=== PATIENT | female | born 1955 | race Caucasian/White ===

== ENCOUNTER → 2017-08-02 | Outpatient (CLI) | payer OTHER ==
[2016-08-02 13:33] VITALS: BP 121/78; PULSE 88
[~2017-08-02] MED LIST: BIOT1CAP8 PO; CALC500C70 PO; EXM/25 PO; OMEG10007 PO
[2017-08-02 13:49] VITALS: BP 113/70; PULSE 74; TEMP 36.7; O2SAT 97
--- NOTE | 2017-08-02 14:34 | Radiation Oncology Follow-Up ---
Radiation Oncology Follow-Up Date of Visit Aug 02, 2017. Reason For Visit Annual follow-up Radiation Completion Date 12/19/12 Diagnosis (1) Carcinoma of right breast Status: Resolved Onset Date: ~ 1998 Stage: l Permanent Comment: History of tubular carcinoma the right breast stage [id number] Status post lumpectomy and sentinel lymph node biopsy Status post completion of radiation therapy to the right breast with boost received 6120 cGy completed 09/14/1999 5 years of tamoxifen Last Edited By: Julia Garcia on Jul 28, 2015 16:08 (2) Carcinoma of left breast Status: Resolved Onset Date: ~ 2012 Stage: ll (A) Permanent Comment: Abnormal left breast mammogram Status post breast lumpectomy and sentinel lymph node biopsy 08/26/2012 Lobular carcinoma stage pTII [id number] Estrogen receptor positive progesterone receptor positive HER-2/peyman negative Oncotype DX score of 19 Status post completion of radiation therapy utilizing hypo-fractionation completed 12/19/2012 received 5006 cGy Last Edited By: Julia Garcia on Jul 28, 2015 16:10 Interim History She's been doing well over this past year. She denies any changes to her breast. She's noted no masses or tenderness and no change in the axilla. She is up-to-date on mammography. She had a mammogram 08/01/2016. This was benign with no evidence of malignancy. She is scheduled for a mammogram on 2016. She continues regular follow-up with Dr. Davis in medical oncology. She is on Aromasin. She denies side effects. Allergies Coded Allergies: No Known Allergies (Verified , 12/25/02) Home Medications Scheduled Biotin (Biotin), 1 CAP PO DAILY Calcium/Vitamin D (Os-John 500 Plus D), 1 TAB PO DAILY Exemestane (Aromasin), 25 MG PO DAILY Fish Oil ([place]-3), 1 CAP PO DAILY Review of Systems Gastrointestinal: Symptoms: WNL Oral: Symptoms: No Problems Respiratory: Symptoms: WNL, Dry Cough Respiratory Comments: Dry cough off and on Other Respiratory: Gets cough to clear throat at times - dry cough most of time Urinary: Symptoms: WNL, Frequency Comments: Freqency "just lately " Skin: Symptoms: No Problems Breast: Right Upper Arm Measurement: 25.7 Right Mid Arm Measurement: 22.1 Right Wrist Measurement: 15.6 Left Upper Arm Measurement: 26.5 Left Mid Arm Measurement: 23.2 Left Wrist Measurement: 15.7 Arm Dominence: Right Physical Exam Vital Signs Date Time Temp Pulse Resp B/P (MAP) Pulse Ox O2 Delivery O2 Flow Rate FiO2 08/02/17 13:49 36.7 74 16 113/70 97 Pain: Pain Location: None Patient Pain Scale: 0 - 10 Initial Pain Intensity: 0.0 General Appearance: no apparent distress Eyes: normal inspection, EOMI ENT: normal ENT inspection, hearing grossly normal Neck: no adenopathy, thyroid normal Respiratory/Chest: lungs clear, no respiratory distress, no accessory muscle use Breast: Breast examination reveals well-healed incisions of the left breast. The incision is in the upper outer quadrant. This is near to the axillary node incision. There is area of fibrous tissue between the incisions. She had mild tender to palpation in this area. There is no distinct masses. She has no skin retractions or nipple changes. There is mild challenge ectasia. Right breast shows well-healed incisions there are no masses or tenderness and no axillary adenopathy. Cardiovascular: regular rate, rhythm, no gallop, no murmur Extremities: no pedal edema Neurologic/Psychiatric: no motor/sensory deficits, alert Skin: warm/dry Additional Studies Status post mammography 08/01/2016. Reviewed above. Assessment & Plan Plan: Continue regular follow-up with medical oncology and her breast surgeon. She continues on antiestrogen therapy. She is going to have a mammogram on . I've asked her to review with the radiologist the area that was noted to be tender on examination today. We asked her to return to our office in 1 year. She may call if she has any questions or concerns in the interim. Total Time In Follow-Up I spent 20 minutes speaking to the patient and performing examination. I spent 15 minutes reviewing information and completing this note. Copy To Heaven Knapp D.O.; Cierra Mckay MD; Aiden Davis M.D. Problem Qualifiers (1) Carcinoma of left breast: Breast location: upper outer quadrant of breast Estrogen receptor status: positive Patient sex: female Qualified Codes: C50.412 - Malignant neoplasm of upper-outer quadrant of left female breast; Z17.0 - Estrogen receptor positive status [ER+]
== END | disposition home or self-care (01) ==
LOC: C.ONC 13:39
PROVIDERS: ATTEND Physician Assistant Medical
DX: Z08 Encounter for follow-up examination after completed treatment for malignant neoplasm (principal); Z92.3 Personal history of irradiation; Z85.3 Personal history of malignant neoplasm of breast